=== PATIENT | female | born 1990 | race Hispanic/Latino ===

== ENCOUNTER 2025-07-22 02:54 | Emergency (ER) | payer BC ==
[~2025-07-22] VITALS: Ht 160 cm; Wt 81.6 kg
[2025-07-22 02:55] VITALS: TEMP 97.8
[2025-07-22] MEDS: MAG/ALUM/SIMETH 30 ML UDCUP PO ONE (03:18)
[2025-07-22] MEDS: FAMOTIDINE 20MG VIAL IV ONE (03:18)
--- NOTE | 2025-07-22 03:19 | ERN ---
ED Note History of Present Illness Stated Complaint: ABD PAIN Chief Complaint: Abdominal Pain Time Seen by MD: 02:56 Dictation: 34-year-old female with a past medical history of diabetes who presented to the ER complaining of abdominal pain, vomiting which started last night, 4 hours prior to presentation to the ER. Patient reported that the pain is localized in the epigastric region. Patient is a reports eating grilled chicken last night for dinner. No sick contacts . She has surgical history of 3 C sections. Allergies: Coded Allergies: omeprazole (Unverified Allergy, Unknown, 07/22/25) Home Meds Active Scripts Dicyclomine HCl (Bentyl) 20 Mg Tab, 1 TAB PO TID for 5 Days, #10 TAB 0 Refills Prov:PATRICIA KENT MD 07/22/25 Famotidine (Famotidine) 20 Mg Tablet, 1 TAB PO BID for 5 Days, #10 TAB 0 Refills Prov:PATRICIA KENT MD 07/22/25 Mag Hydrox/Al Hydrox/Simeth (Maalox/Mylanta Susp) 200 Mg-200 Mg-20 Mg/5 Ml Susp, 30 ML PO Q6HPRN, #120 ML Prov:PATRICIA KENT MD 07/22/25 Past Medical History Past Medical History: Other Additional Past Medical Hx: GASTRITIS Surgical History: LMP: Jul 20, 2025 Review of System Dictation NEGATIVE EXCEPT PER HPI Constitutional: Negative for fever,chills, and weight loss Eyes: Negative for injury, pain,redness, and discharge ENT: Negative for injury,pain or swelling Cardiovascular: denies chest pain, palpitations, and edema Respiratory: Negative for shortness of breath, cough, and wheezing, Abdomen/GI: Epigastric abdominal pain Back: Negative for injury and pain : Negative for injury, bleeding and discharge MS/Extremity: Negative for injury and deformity Skin: Negative for rash, and discoloration Neuro: Negative for headache, weakness, numbness, tingling, and seizure Psych: Negative for suicide ideation, homicidal ideation, and hallucinations Initial Vital Sign VS Vital Signs Date Time Temp Pulse Resp B/P (MAP) Pulse Ox O2 Delivery O2 Flow Rate FiO2 07/22/25 02:55 97.9 51 20 139/64 100 Room Air 10/25/25 04:02 0 21 Physical Exam Dictation General: awake, alert, NAD Head/Face: Normocephalic, atraumatic Eyes: PERRL, EOMI, vision at baseline ENT: oral cavity clear, TMs clear, no signs of infection Neck: Trachea midline, supple, no nuchal rigidity Cardiovascular: RRR, normal S1/S2, No MRGs, no JVD Respiratory: CTAB, no respiratory distress, No rales or wheezes Abdomen: Soft, epigastric tenderness. Skin: Warm, dry, normal turgor, no rash MS/Extremity: Pulses equal, no cyanosis, neurovascular intact, FROM Neuro: COAx4, GCS 15, strength 5/5, CN 2-12 intact, normal cerebellar exam, normal gait, Psych: Normal behavior, mood, and affect normal Results (Laboratory/Radiology) Laboratory/Radiology Laboratory Tests Test 07/22/25 03:08 07/22/25 03:15 Urine Color LIGHT-YELLOW (YELLOW) Urine Appearance CLEAR (CLEAR) Urine pH 6.5 (5.0-8.0) Urine Specific [place] 1.018 (1.001-1.031) Urine Protein NEGATIVE mg/dL (NEGATIVE) Urine Glucose (UA) NEGATIVE mg/dL (NEGATIVE) Urine Ketones NEGATIVE mg/dL (NEGATIVE) Urine Occult Blood LARGE (NEGATIVE) H Urine Nitrate NEGATIVE (NEGATIVE) Urine Bilirubin NEGATIVE mg/dL (NEGATIVE) Urine Urobilinogen 0.2 mg/dL (0.2-1.0) Urine Leukocyte Esterase NEGATIVE Mitzi/uL Urine RBC 26-50 /HPF (0-1) H Urine WBC 0-1 /HPF (0-1) Urine Squamous Epithelial Cells RARE /HPF (0-2) Urine Bacteria None /HPF (None Seen) Urine HCG, Qualitative NEGATIVE (NEGATIVE) White Blood Count 12.0 K/uL (4.8-10.8) H Red Blood Count 4.97 MIL/uL (4.00-5.50) Hemoglobin 13.9 g/dL (12.0-16.0) Hematocrit 42.3 % (36-48) Mean Corpuscular Volume 85.1 fL (79-99) Mean Corpuscular Hemoglobin 28.0 pg (27.0-33.0) Mean Corpuscular Hemoglobin Concent 32.9 g/dL (32.0-36.0) Red Cell Distribution Width 13.8 % (11.0-15.5) Platelet Count 250 K/uL (130-400) Mean Platelet Volume 11.0 fL (7.5-10.5) H Immature Granulocyte % (Auto) 0.3 % (0-1) Neutrophils (%) (Auto) 82.4 % (40.0-77.0) H Lymphocytes (%) (Auto) 11.2 % (21.0-51.0) L Monocytes (%) (Auto) 5.2 % (3.0-13.0) Eosinophils (%) (Auto) 0.7 % (0.0-8.0) Basophils (%) (Auto) 0.2 % (0.0-5.0) Neutrophils # (Auto) 9.9 K/uL (1.8-7.7) H Lymphocytes # (Auto) 1.4 K/uL (1.0-4.8) Monocytes # (Auto) 0.6 K/uL (0.1-1.0) Eosinophils # (Auto) 0.08 K/uL (0.00-0.70) Basophils # (Auto) 0.03 K/uL (0.00-0.20) Absolute Immature Granulocyte (auto 0.04 K/uL (0-1) Nucleated Red Blood Cells 0.0 % (0.0-0.19) Sodium Level 141 mmol/L (136-145) Potassium Level 3.6 mmol/L (3.5-5.1) Chloride Level 102 mmol/L (101-111) Carbon Dioxide Level 30 mmol/L (21-32) Blood Urea Nitrogen 12 mg/dL (7-18) Creatinine 0.9 mg/dL (0.5-1.0) Glomerular Filtration Rate Calc 86 mL/min (>90) Random Glucose 125 mg/dL (70-105) H Total Calcium 8.5 mg/dL (8.5-10.1) Total Bilirubin 0.3 mg/dL (0.2-1.0) Aspartate Amino Transf (AST/SGOT) 32 U/L (10-37) Alanine Aminotransferase (ALT/SGPT) 57 U/L (12-78) Alkaline Phosphatase 66 U/L (50-136) Total Protein 7.6 g/dL (6.0-8.3) Albumin 3.6 g/dL (3.5-5.0) Lipase 33 U/L (16-77) ED Course ED Course Orders Procedure Category Date Status Time Cbc With Differential LAB 07/22/25 Complete 03:04 Comprehensive LAB 07/22/25 Complete Metabolic Panel 03:04 ,Urine Test LAB 07/22/25 Complete 03:04 Urinalysis Profile LAB 07/22/25 Complete 03:04 Mag/Alum/Simeth 30ml PHA 07/22/25 Complete (Maalox Plus 30ml) 03:30 Lipase LAB 07/22/25 Complete 03:04 Famotidine 20mg Vial PHA 07/22/25 Complete (Pepcid 20mg Vial) 03:30 Ondansetron 4mg Inj PHA 07/22/25 Complete (Zofran 4mg Inj) 03:30 Dicyclomine Hcl PHA 07/22/25 Complete (Bentyl 10mg/5ml 04:30 Current Medications Medications (Trade) Dose Ordered Sig/Kay Route PRN Reason Start Time Stop Time Status Last Admin Dose Admin Al Hydroxide/Mg Hydroxide (MAALox PLUS 30ML) 30 ml ONCE ONCE PO 07/22/25 03:30 07/22/25 03:31 DC 07/22/25 03:18 Dicyclomine HCl (Bentyl 10mg/5ml Syrup) 10 mg ONCE ONCE PO 07/22/25 04:30 07/22/25 04:31 DC 07/22/25 04:15 Famotidine (Pepcid 20mg Vial) 20 mg ONCE ONCE IV 07/22/25 03:30 07/22/25 03:31 DC 07/22/25 03:18 Ondansetron HCl (zoFRAN 4MG INJ) 4 mg ONCE ONCE IVP 07/22/25 03:30 07/22/25 03:31 DC Vital Signs Date Time Temp Pulse Resp B/P (MAP) Pulse Ox O2 Delivery O2 Flow Rate FiO2 07/22/25 04:02 48 18 108/54 99 Room Air* 0 21 07/22/25 02:55 97.9 51 20 139/64 100 Room Air Medical Decision Making MDM Impressions: Gastritis Peptic ulcer Food poison Maalox ordered Famotidine ordered Bentyl oral Laboratory ordered CBC, BNP and lipase Results within normal limits. Patient he will be discharged home after improvement on famotidine, Maalox muscle spasm medication. DX & DISP Disposition: Discharge Departure Impression: Primary Impression: Gastritis and duodenitis Additional Impression: Vomiting Condition: Stable Scripts Dicyclomine HCl (Bentyl) 20 Mg Tab 1 TAB PO TID for 5 Days, #10 TAB 0 Refills Prov: PATRICIA KENT MD 07/22/25 Famotidine (Famotidine) 20 Mg Tablet 1 TAB PO BID for 5 Days, #10 TAB 0 Refills Prov: PATRICIA KENT MD 07/22/25 Mag Hydrox/Al Hydrox/Simeth (Maalox/Mylanta Susp) 200 Mg-200 Mg-20 Mg/5 Ml Susp 30 ML PO Q6HPRN, #120 ML Prov: PATRICIA KENT MD 07/22/25 Additional Instructions: RETURN TO ER FOR ANY ACUTE OR WORSENING SYMPTOMS. FOLLOW-UP IN 1-2 DAYS WITH PRIMARY PROVIDER FOR RECHECK OF TODAY'S SYMPTOMS. Referrals: NONE (PCP) PATRICIA KENT MD Jul 22, 2025 03:19
[2025-07-22 03:24] LABS: IMMATURE GRANULOCYTE ABSOLUTE 0.04 K/uL (0-1); NUCLEATED RED BLOOD CELLS 0.0 % (0.0-0.19); PLATELET COUNT (AUTO) 250 K/uL (130-400); RED BLOOD CELL COUNT(AUTO) 4.97 MIL/uL (4.00-5.50); RED CELL DISTRIBUTION WIDTH 13.8 % (11.0-15.5); WHITE BLOOD COUNT (AUTO) 12.0 K/uL (4.8-10.8)
[2025-07-22 03:33] LABS: CREATININE 0.9 mg/dL (0.5-1.0); GLOMERULAR FILTR. RATE CALC 86.0 mL/min (>90); GLUCOSE,RANDOM 125.0 mg/dL (70-105); SODIUM SERUM 141.0 mmol/L (136-145); UREA NITROGEN, BLOOD 12.0 mg/dL (7-18)
[2025-07-22 03:35] LABS: APPEARANCE,URINE CLEAR (CLEAR); GLUCOSE, URINE (UA) NEGATIVE (NEGATIVE); LEUKOCYTE ESTERASE ,URINE NEGATIVE Leu/uL (NEGATIVE); NITRATE,URINE NEGATIVE (NEGATIVE); OCCULT BLOOD,URINE LARGE (NEGATIVE)
[2025-07-22 03:37] LABS: ASPARTATE AMINOTRANSFERASE 32.0 U/L (10-37); TOTAL PROTEIN, SERUM 7.6 g/dL (6.0-8.3)
[2025-07-22 03:39] LABS: ADD UA MICROSCOPIC YES
[2025-07-22 03:41] LABS: HCG,QUALITATIVE URINE NEGATIVE (NEGATIVE)
[2025-07-22 03:42] LABS: SQUAMOUS EPITHELIAL CELL,UR RARE /HPF (0-2)
[2025-07-22 04:02] VITALS: BP 108/54; PULSE 48; RESP 18; O2SAT 99
[2025-07-22] MEDS: DICYCLOMINE HCL 10 MG/5 ML ML PO ONE (04:15)
[2025-07-22] MEDS ORDERED: FAMO20TA8 PO (04:20)
[2025-07-22] MEDS ORDERED: MAAL30 PO (04:20)
[2025-07-22] MEDS ORDERED: DICY20TA2 PO (04:20)
== END 2025-07-22 04:48 | disposition home or self-care (01) ==
LOC: EDH 02:54
DX: K29.70 Gastritis, unspecified, without bleeding (principal); K29.80 Duodenitis without bleeding; R11.10 Vomiting, unspecified; Z87.19 Personal history of other diseases of the digestive system; E11.9 Type 2 diabetes mellitus without complications; Z88.8 Allergy status to other drugs, medicaments and biological substances; Z79.899 Other long term (current) drug therapy; Z98.890 Other specified postprocedural states
CPT/HCPCS: 99284; 96374; 80053; 83690; 85025; 81001; 81025; 36415; J1308; J2405